=== PATIENT | female | born 1960 | race Caucasian/White ===

== ENCOUNTER 2024-06-29 09:46 | Observation (INO) | payer OTHER, SELFPAY ==
[2024-06-29] VITALS (7 sets, daily range): BP systolic 108–124; BP diastolic 49–72; PULSE 62–98; RESP 16–20; TEMP 36.2–36.9; O2SAT 98–100; BMI 20.8
--- NOTE | ~2024-06-29 | CT_ITS ---
EXAMINATION: CT HEAD WITHOUT CONTRAST CLINICAL INFORMATION: Syncope and head injury COMPARISON: None available. TECHNIQUE: Contiguous axial imaging was performed from the skull base to vertex without intravenous administration of contrast. This CT examination was performed using dose optimization techniques as appropriate, variously including the following: *Automated exposure control *Adjustment of mA and/or kV according to patient size (this includes techniques or standardized protocols for targeted exams where dose is matched to indication/reason for exam; i.e. extremities or head) *Use of iterative reconstruction technique DLP: 560 mGy-cm FINDINGS: There is no acute intra-axial, extra-axial bleed, masses or midline shift. There is no acute infarction in evolution. There is a dense midline falx calcification. There is no edema. The boyle to white matter difference is maintained normal. The lateral ventricles are symmetrical in size and configuration without enlargement. Bone windows reveal no calvarial abnormality. There is no scalp soft tissue abnormality. CT/CT head/brain wo IV con IMPRESSION: No acute intracranial process seen.
--- NOTE | ~2024-06-29 | CT_ITS ---
EXAMINATION: CT ANGIOGRAM HEAD CT ANGIOGRAM NECK CLINICAL INFORMATION: syncope COMPARISON: Same day head CT TECHNIQUE: Test bolus sequences followed by intravenous administration 70 mL of Omnipaque 350. Helical imaging was performed in the axial plane from the aortic arch to the skull vertex. Delayed postcontrast imaging of the head was also performed. The data was processed at the distribution engineering technologist's workstation for generation of MIP sequences. Angled MIPs and volume rendered reformatted images were also generated at an offline 3D workstation. Stenoses are assessed in accordance with Samuels et al. Quantification of Carotid Stenosis on CT Angiography. AJR 2006. 27(1):13-19. This CT examination was performed using dose optimization techniques as appropriate, variously including the following: *Automated exposure control *Adjustment of mA and/or kV according to patient size (this includes techniques or standardized protocols for targeted exams where dose is matched to indication/reason for exam; i.e. extremities or head) *Use of iterative reconstruction technique DLP: 1323 mGy-cm FINDINGS: CT HEAD: 1.5 cm enhancing extra-axial right posterior parafalcine/parasagittal mass causing mild extrinsic compression along the posterior third of the superior sagittal sinus, presumed meningioma. No significant mass effect along the subjacent right parietal lobe. Additional noncontrast intracranial findings discussed separately. CTA HEAD: Extensive venous contamination limits assessment of the distal intracranial arterial vasculature. No hemodynamically significant stenosis or occlusion in the anterior or posterior circulation. Patchy calcific plaque along the carotid siphons without stenosis. No aneurysms and no high flow vascular malformations. Timing of the contrast bolus allows assessment of the major dural venous sinuses, which all opacify normally CTA NECK: Classic 3 vessel branching pattern of the aortic arch. Origins of the great vessels are widely patent. The common carotid arteries are widely patent. The carotid bifurcations and bilateral internal carotid arteries are widely patent. Punctate calcific plaque of the left carotid bulb. The vertebral arteries are codominant The vertebral artery ostia are widely patent. Both vertebral arteries are widely patent throughout their extracranial cervical course. CT NECK: Severe bilateral TMJ osteoarthrosis. Interrupted right posterior maxillary molar. Nonspecific sialectasis of the submandibular glands. Significant dental streak artifact obscures the floor of mouth, however no gross obstructing lesion is identified. Bilateral torus mandibulari calcified bilateral palatine tonsilloliths. Reversal of the normal cervical lordosis and multilevel spondylitic disease.. CT/CT angio head neck IMPRESSION: 1. 1.5 cm right posterior parafalcine/parasagittal meningioma causing mild extrinsic compression along the posterior third of the superior sagittal sinus. No significant mass effect nor vasogenic edema in the the subjacent right parietal lobe. Recommend further characterization with contrast-enhanced MRI. 2. No large vessel occlusion or flow-limiting stenosis within the intracranial or cervical vasculature. No arterial dissection or intracranial saccular aneurysm.
--- NOTE | ~2024-06-29 | XR_ITS ---
EXAMINATION: XR CHEST CLINICAL INFORMATION: Syncope COMPARISON: None available. TECHNIQUE: 2 , Frontal view of the chest was obtained. FINDINGS: The cardiomediastinal silhouette is within normal limits. The lungs are well expanded. There is no focal consolidation, edema, or effusion. No pneumothorax. No acute osseous abnormality. XR/XR chest 1V IMPRESSION: No evidence of acute pulmonary process.
[2024-06-29 10:53] LABS: MANUAL DIFF FLAG NO
[2024-06-29 11:00] LABS: Basophils Percent Auto 0.5 % (0-2); Eosinophils Absolute Auto 0.1 X10*3/uL (0.0-0.4); Hematocrit 36.1 % (37.0-47.0); Hemoglobin 12.4 g/dl (12.0-16.0); Imm Gran Abs Auto 0.01 X10*3/uL (0.00-0.03); Imm Gran Pct Auto 0.1 % (0.0-0.4); Lymphocytes Absolute Auto 1.6 X10*3/uL (1.2-4.9); Lymphocytes Percent Auto 19.2 % (20-40); Mean Corpuscular HGB Conc 34.3 g/dl (31.0-35.0); Mean Corpuscular Hemoglobin 29.9 pg (27.0-33.0); Mean Platelet Volume 9.7 fL (9.4-12.3); Monocytes Absolute Auto 0.6 X10*3/uL (0.1-1.2); Neutrophils Absolute Auto 5.9 x10*3/uL (2.0-8.3); Neutrophils Percent Auto 72.2 % (45-73); Platelet Count 356 X10*3/uL (160-400); Red Blood Count 4.15 X10*6/uL (4.20-5.50); Red Cell Distribution Width 11.7 % (11.0-16.0); White Blood Count 8.2 X10*3/uL (4.8-10.8)
[2024-06-29 11:06] LABS: Anion Gap 16 (12-20); Blood Urea Nitrogen 17 mg/dL (9-16); Calcium 9.5 mg/dL (8.4-10.2); Carbon Dioxide 26 mmol/L (22-29); Chloride 96 mmol/L (96-108); Creatinine Clr Calc Pharmacy 42.2; Estimated Glomerular Filt Rate 46; Glucose Random 111 mg/dL (60-115); Potassium 3.4 mmol/L (3.3-5.1); Sodium 135 mmol/L (135-145)
--- NOTE | 2024-06-29 11:24 | PC.NURSE ---
Pt. states that she has a lump on her head. States that it is from her fall at the grocery store. Per EMS report, it was stated that pt. did not sustain a fall at the grocery store and lowered herself to the ground. Pt. then states that she is actually unsure whether or not she hit her head. Provider notified.
--- NOTE | 2024-06-29 11:29 | PC.NURSE ---
Pt.'s daughter, Laura, wants to leave contact number in chart - [phone]
--- NOTE | 2024-06-29 12:03 | ED_ITS ---
HPI - Syncope General Chief Complaint: Dizziness Stated Complaint: N/V X 3DAYS Time Seen by Provider: 06/29/24 11:35 Source: patient and EMS Mode of arrival: EMS Limitations: no limitations History of Present Illness ED Provider: DR. Kee HPI narrative: 64-year-old female who is otherwise healthy been having nausea and vomiting for the past 3 days that has improved, patient went for shopping today when she felt dizzy and lightheadedness patient passed out for few seconds found herself on the floor and bystander was talking to her, complaining of headache and bump on the left temporal area. otherwise has no other complaints in particular no chest pain, no SOB. Related Data Allergies Allergy/AdvReac Type Severity Reaction Status Date / Time No Known Allergies Allergy Verified 06/29/24 09:58 Review of Systems 2 Review of Systems: All other systems are reviewed and are negative Constitutional: Reports as per HPI and Reports no additional constitutional complaints Eyes: Reports as per HPI and Reports no additional eye complaints Reports system reviewed and no additional complaints, except as documented Cardiovascular: Reports as per HPI and Reports no additional cardiovascular complaints Respiratory: Reports as per HPI and Reports no additional respiratory complaints Gastrointestinal: Reports as per HPI and Reports no additional gastrointestinal complaints Genitourinary: Reports no additional female genitourinary complaints Musculoskeletal: Reports no additional musculoskeletal complaints Skin/Breast: Reports system reviewed and no additional complaints, except as docu Psychiatric: Reports no additional psychiatric complaints Endocrine: Reports no additional endocrine complaints Hematologic/Lymphatic: Reports no additional hematologic/lymphatic complaints Allergic/Immunologic: Reports no additional allergic/immunologic complaints Reports system reviewed and no additional complaints, except as documented and Reports Abnormal speech present [facility] Social History Social History Smoked in Last 30 Days: No Use of substances other than those prescribed or required for medical reasons: Yes Substance Use Type: Marijuana Substance Use Frequency: Weekly Advance Directives: Yes Advance Directives Information Provided: No Advance Directives on File: No Do you have a plan to hurt others: No Plan Physical Exam 2 Vital Signs: Vital Signs: Last Vital Signs Temp 98.4 F 06/29/24 09:56 Pulse 97 06/29/24 12:18 Resp 16 06/29/24 09:56 BP 113/71 06/29/24 12:18 Pulse Ox 100 06/29/24 09:56 O2 Del Method Room Air 06/29/24 09:56 BMI result Body Mass Index 20.8 Vital signs have been reviewed and appear to be correct. Blood pressure elevated. Heart rate normal. Respiratory rate normal. Temperature normal. Oxygen saturation normal. Appearance: Alert. Oriented X3. No acute distress. Head: Normal external exam. Normocephalic. Atraumatic. No Isaac signs noted. No raccoon eyes noted Eyes: PERRLA. EOMI. Conjunctiva and sclera normal. Eyelids normal. ENT: TM's Normal. Pharynx normal. Uvula midline. Moist mucous membranes. No trismus noted. No drooling noted. No muffled voice noted. Neck: Normal inspection. Neck supple. FROM. No adenopathy. Thyroid Normal. No meningeal signs. No neck mass noted. CVS: Normal heart rate and rhythm. Heart sound normal. No murmurs noted. Pulses normal throughout. Respiratory: No respiratory distress. Painless inspiration. Breath sounds normal. No wheezes/rales/rhonchi noted. Chest nontender. No accessory muscle usage noted or decreased air movement noted. Abdomen: Soft and nontender. Bowel sounds normal in all 4 quadrants. No distention noted. No organomegaly noted. No visible injury noted. Back: No CVA tenderness. Full range of motion noted. Skin: Skin warm and dry. Normal skin color. Normal skin turgor. No rashes/lesions/lacerations noted. Extremities: No lower extremity edema. Extremities exhibit normal range of motion. Extremities nontender. Neuro: Oriented X 3. Cranial nerve exam: II-XII are grossly intact No motor deficit. No sensory deficit. Reflexes normal. Course Reevaluation(s) Reevaluation #1: syncopal episode unclear etiology, will admit the patient for cardiac monitoring and further syncopal workup. Time: 14:15 Medications Administered Discontinued Medications Generic Name Dose Route Start Last Admin Trade Name Freq PRN Reason Stop Dose Admin Sodium Chloride 1,000 mls @ 999 mls/hr 06/29/24 12:01 06/29/24 13:37 Ns IV 06/29/24 13:01 Infused .Q1H1M ONE Infusion Medical Decision Making Differential Diagnosis Differential Diagnoses: The differential diagnosis associated with the presentation includes ( ACS, pulmonary embolism, electrolyte derangement, heat stroke, dehydration, severe anemia, intracranial bleed.) Admission/Observation Consideration of admission/observation: Escalation of care including admission/observation considered Consult Healthcare Provider Management of the patient was discussed with: Hospitalist ( Dr. Borjas) Lab Data MDM Lab Attestation statement: I reviewed the patient's lab results. 06/29/24 10:48 06/29/24 10:48 Labs: Lab Results 06/29/24 06/29/24 06/29/24 Range/Units 10:48 12:13 12:50 WBC 8.2 (4.8-10.8) X10*3/uL RBC 4.15 L (4.20-5.50) X10*6/uL Hgb 12.4 (12.0-16.0) g/dl Hct 36.1 L (37.0-47.0) % MCV 87.0 (80.0-98.0) fL MCH 29.9 (27.0-33.0) pg MCHC 34.3 (31.0-35.0) g/dl RDW 11.7 (11.0-16.0) % Plt Count 356 (160-400) X10*3/uL MPV 9.7 (9.4-12.3) fL Immature Gran % (Auto) 0.1 (0.0-0.4) % Neut % (Auto) 72.2 (45-73) % Lymph % (Auto) 19.2 L (20-40) % [place] % (Auto) 7.0 (2-11) % Eos % (Auto) 1.0 (0-4) % Baso % (Auto) 0.5 (0-2) % Lymph # (Auto) 1.6 (1.2-4.9) X10*3/uL [place] # (Auto) 0.6 (0.1-1.2) X10*3/uL Eos # (Auto) 0.1 (0.0-0.4) X10*3/uL Baso # (Auto) 0.0 (0.0-0.2) X10*3/uL Abs Immat Gran (auto) 0.01 (0.00-0.03) X10*3/uL Absolute Neuts (auto) 5.9 (2.0-8.3) x10*3/uL Absolute Nucleated RBC 0.000 (0.0-0.012) X10*3/uL Nucleated RBC % (auto) 0.0 (0.0-0.2) /100WBC D-Dimer High Sensitivty < 150 NG/ML Sodium 135 (135-145) mmol/L Potassium 3.4 (3.3-5.1) mmol/L Chloride 96 (96-108) mmol/L Carbon Dioxide 26 (22-29) mmol/L Anion Gap 16 (12-20) BUN 17 H (9-16) mg/dL Creatinine 1.19 (0.5-1.4) mg/dL Estim Creat Clear Calc 42.2 Estimated GFR 46 Random Glucose 111 (60-115) mg/dL Calcium 9.5 (8.4-10.2) mg/dL Troponin I High Sens 7.0 (<3.5-17.0) ng/L Independent Interpretation I performed an independent interpretation of an: EKG ( Head: No acute intracranial pathology.) and CT Scan ( head: No acute intracranial pathology.) Radiology Impression Discussion of test interpretation with radiology: I have reviewed the radiologist's reading. Discharge Plan Discharge Clinical Impression: Syncope, Syncope and collapse, Closed head injury Patient Disposition: Admitted As Inpatient Print Language: Ug[place]an
[2024-06-29] MEDS: 0.9 % Sodium Chloride 1,000 ML 999 ML IV (12:15)
--- NOTE | 2024-06-29 12:19 | PC.NURSE ---
Orthostatic VS completed per orders.
--- NOTE | 2024-06-29 12:23 | PC.NURSE ---
Swallow screen ordered and completed with a pass.
[2024-06-29 13:04] LABS: D Dimer High Sensitivity < 150 NG/ML
--- NOTE | 2024-06-29 14:20 | ECG_ITS ---
Test Reason : SYNCOPE Blood Pressure : / mmHG Vent. Rate : 060 BPM Atrial Rate : 060 BPM P-R Int : 144 ms QRS Dur : 094 ms QT Int : 416 ms P-R-T Axes : 057 -72 -19 degrees QTc Int : 416 ms Normal sinus rhythm Left axis deviation T wave abnormality, consider anterolateral ischemia Abnormal ECG No previous ECGs available Referred By: Pj Kee Electronically Signed By:IZABEL MAGAÑA MD
[2024-06-29 14:44] LABS: Ethanol < 10 mg/dL
--- NOTE | 2024-06-29 14:51 | PM.IMHP ---
History of Present Illness Date of Service: 06/29/24 Chief Complaint: Syncopal episode 64-year-old female who is very active and healthy by her account presents after syncopal episode and supermarket. Patient states that for the past 3 days she has had nausea and vomiting and very little p.o. intake. She states this morning she took her blood pressure meds and felt like going to the store. While in the supermarket she felt dizzy like she had to lay down and then awoke to people standing over her. She presented to the ER via ambulance. Save contusion to left side of her head otherwise back to baseline at the time of arrival. Review of Systems Review of Systems: Denies chest pain Denies shortness of breath Denies nausea vomiting diarrhea Denies fever chills PMFSH Social History Smoked in Last 30 Days: No Use of substances other than those prescribed or required for medical reasons: Yes Substance Use Type: Marijuana Substance Use Frequency: Weekly Advance Directives: Yes Advance Directives Information Provided: No Advance Directives on File: No Do you have a plan to hurt others: No Plan Meds Allergies Allergy/AdvReac Type Severity Reaction Status Date / Time No Known Allergies Allergy Verified 06/29/24 09:58 Physical Exam Vital Signs and Narrative: Vital Signs: Last Vital Signs Temp 98.4 F 06/29/24 09:56 Pulse 97 06/29/24 12:18 Resp 16 06/29/24 09:56 BP 113/71 06/29/24 12:18 Pulse Ox 100 06/29/24 09:56 O2 Del Method Room Air 06/29/24 09:56 BMI result Body Mass Index 20.8 Const: Other: Awake alert oriented x3 no acute distress HEENT: Other: Left temporal contusion/hematoma proximally 2.5 cm round Resp: Other: Clear to auscultation bilaterally no rales rhonchi or wheezes Cardio: Other: No S4; positive S1-S2; no S3 murmurs rubs or gallops GI: Other: Soft nontender nondistended normoactive bowel sounds Neuro: Other: Cranial nerves 2-12 grossly intact as tested. Motor is 5/5 all extremities. Sensation is intact. Cognition appropriate. Gait steady Extrem: Other: No edema bilaterally Results Labs 06/29/24 10:48 06/29/24 10:48 Labs: Laboratory Results - last 24 hr 06/29/24 06/29/24 06/29/24 10:48 12:13 12:50 MCV 87.0 MCH 29.9 MCHC 34.3 RDW 11.7 Plt Count 356 MPV 9.7 Immature Gran % (Auto) 0.1 Neut % (Auto) 72.2 Lymph % (Auto) 19.2 L [place] % (Auto) 7.0 Eos % (Auto) 1.0 Baso % (Auto) 0.5 Lymph # (Auto) 1.6 [place] # (Auto) 0.6 Eos # (Auto) 0.1 Baso # (Auto) 0.0 Abs Immat Gran (auto) 0.01 Absolute Neuts (auto) 5.9 Absolute Nucleated RBC 0.000 Nucleated RBC % (auto) 0.0 D-Dimer High Sensitivty < 150 Anion Gap 16 Estim Creat Clear Calc 42.2 Estimated GFR 46 Random Glucose 111 Calcium 9.5 Troponin I High Sens 7.0 Ethyl Alcohol < 10 Imaging Radiologist's Impressions: Impressions Head CT 06/29/24 12:42 IMPRESSION: No acute intracranial process seen. Assessment and Plan (1) Closed head injury: Qualifiers: Encounter type: initial encounter Qualified Code(s): S09.90XA - Unspecified injury of head, initial encounter Status: Acute (2) Hypertension: Qualifiers: Hypertension type: primary hypertension Qualified Code(s): I10 - Essential (primary) hypertension Status: Acute (3) Syncope: Qualifiers: Syncope type: unspecified Qualified Code(s): R55 - Syncope and collapse Status: Acute Plan 64-year-old active female presents after syncopal episode and super marked. Three days of poor intake; nausea and vomiting. Martin dizzy and weak and then passed out by her account. Presents to ER asymptomatic 1. Syncope (question vasovagal ) -admit to telemetry overnight -CTA of head negative CTA head and neck pending -volume repletion 2. Hypertension -acceptable control presently -follow clinically -add back therapies when clinically appropriate Full code Lovenox Will require 1 midnight hospital stay to complete workup for syncope Quality Stroke Does the patient have a stroke diagnosis?: No VTE Prior VTE?: No VTE Risk Level:: Medical - moderate - high VTE Device Contraindication: Treatment Not Indicated VTE Drug Contraindication: N/A - Med Ordered
--- NOTE | 2024-06-29 15:25 | PHA.MEDREC ---
Addendum entered by Fredo Villalta [facility] 06/29/24 16:20: MED REC DOUBLED CHECKED BY [facility] Original Note: Pharmacy Consult ? Medication Reconciliation Pharmacy has completed the medication reconciliation. Spoke with patient to confirm medications. Patient says she takes bupropion 1 tab in the morning and then the second one as needed for anxiety/depression, instead of BID as rx says. She took everything this morning.
[2024-06-29] MEDS: Enoxaparin Sodium 40 MG/0.4 ML SYRINGE SUBCUT (15:57)
[2024-06-29] MEDS: 0.9 % Sodium Chloride Flush 3 ML SYRINGE IVFLUSH ×2 (15:58→22:40)
[2024-06-29] MEDS: iohexoL 350 MG/ML 100 ML INFUS..BTL 70 ML IV (16:55)
[2024-06-29] MEDS: Acetaminophen 325 MG TABLET 650 MG PO (22:48)
[2024-06-29] MEDS: Melatonin 3 MG TABLET 6 MG PO (22:48)
[2024-06-30] VITALS: BP 109/63; PULSE 68; RESP 20; TEMP 36.6; O2SAT 99
[2024-06-30 03:00] VITALS: BP 107/70; PULSE 63; RESP 20; TEMP 36.4; O2SAT 100
[2024-06-30 05:06] VITALS: BMI 20.9
[2024-06-30 07:11] LABS: MANUAL DIFF FLAG NO
[2024-06-30 07:22] LABS: Basophils Absolute Auto 0.1 X10*3/uL (0.0-0.2); Basophils Percent Auto 1.1 % (0-2); Eosinophils Absolute Auto 0.2 X10*3/uL (0.0-0.4); Eosinophils Percent Auto 2.8 % (0-4); Hematocrit 35.5 % (37.0-47.0); Hemoglobin 12.1 g/dl (12.0-16.0); Imm Gran Abs Auto 0.01 X10*3/uL (0.00-0.03); Imm Gran Pct Auto 0.2 % (0.0-0.4); Lymphocytes Absolute Auto 2.2 X10*3/uL (1.2-4.9); Lymphocytes Percent Auto 40.5 % (20-40); Mean Corpuscular HGB Conc 34.1 g/dl (31.0-35.0); Mean Corpuscular Hemoglobin 30.4 pg (27.0-33.0); Mean Corpuscular Volume 89.2 fL (80.0-98.0); Mean Platelet Volume 10.2 fL (9.4-12.3); Monocytes Absolute Auto 0.4 X10*3/uL (0.1-1.2); Monocytes Percent Auto 7.8 % (2-11); Neutrophils Absolute Auto 2.6 x10*3/uL (2.0-8.3); Neutrophils Percent Auto 47.6 % (45-73); Platelet Count 339 X10*3/uL (160-400); Red Blood Count 3.98 X10*6/uL (4.20-5.50); Red Cell Distribution Width 11.6 % (11.0-16.0); White Blood Count 5.4 X10*3/uL (4.8-10.8)
[2024-06-30 07:38] LABS: Alanine Aminotransferase 21 U/L (0-31); Albumin Level 4.3 g/dL (3.5-5.0); Alkaline Phosphatase 54 U/L (39-117); Anion Gap 18 (12-20); Aspartate Amino Transferase 21 U/L (5-31); Bilirubin Total 0.5 mg/dL (0.0-1.0); Blood Urea Nitrogen 15 mg/dL (9-16); Calcium 9.9 mg/dL (8.4-10.2); Carbon Dioxide 25 mmol/L (22-29); Chloride 98 mmol/L (96-108); Creatinine Clr Calc Pharmacy 44.2; Estimated Glomerular Filt Rate 48; Glucose Fasting 84 mg/dL (60-99); Potassium 3.6 mmol/L (3.3-5.1); Sodium 137 mmol/L (135-145); Total Protein 6.7 g/dL (6.5-8.0)
[2024-06-30 07:45] VITALS: BP 112/53; PULSE 66; RESP 20; TEMP 36.4; O2SAT 98
[2024-06-30] MEDS: Sertraline HCL 100 MG TABLET PO (08:16)
[2024-06-30] MEDS: buPROPion HCl XL 150 MG TAB.ER.24H PO (08:16)
[2024-06-30] MEDS: hydroCHLOROthiazide 12.5 MG TABLET PO (08:16)
[2024-06-30] MEDS: amLODIPine Besylate 10 MG TABLET PO (08:16)
[2024-06-30] MEDS: Multivitamin TABLET 1 TAB PO (08:16)
[2024-06-30] MEDS: Pravastatin Sodium 40 MG TABLET PO (08:16)
[2024-06-30] MEDS: lisinopriL 10 MG TABLET PO (08:16)
[2024-06-30] MEDS: 0.9 % Sodium Chloride Flush 3 ML SYRINGE IVFLUSH (08:17)
--- NOTE | 2024-06-30 09:29 | MHC.CM.PN ---
Ester 06/30/24, Pt. lives with her dtr., she is independent, no home health services or DME. HCP to be completed here and added to chart. Pt. is able to arrange a ride home at DC. PCP confirmed: Ailyn Redding. DCP: home, self care. CM to follow and assist as needed with DC plan.
[2024-06-30] MEDS: LORazepam 1 MG TABLET PO (10:52)
[2024-06-30 11:29] VITALS: BP 105/58; PULSE 75; RESP 20; TEMP 37.2; O2SAT 99
--- NOTE | 2024-06-30 11:45 | P.CNNE_ITS ---
History of Present Illness Data of Consult Service Date: 06/30/24 Primary Care Provider: TAVARES Schmidt HPI Reason for consult: Dizziness 64 years old woman with previous history of alcohol abuse came to hospital with nausea and dizziness. She said that she could not keep anything in her stomach. There was no mental confusion. There was no focal stroke-like symptoms. She had a CT done that revealed some finding prompting this consultation. Review of Systems 2 Review of Systems: No headache trauma or cold or flu-like symptoms PMFSH Surgical History Surgical History (Updated 06/30/24 @ 05:05 by Domi Milian, RN) History of hip replacement, total Social History Social History (Updated 06/30/24 @ 01:08 by Domi Milian RN) Household Members: Children Housing: House Do you presently have visiting nurse or other home services: No Patient Tobacco Use Status: Never used Tobacco e-Cigarette/Vaping Use: Never Used Substance Use Type: Marijuana service: No Meds Allergies Allergy/AdvReac Type Severity Reaction Status Date / Time No Known Allergies Allergy Verified 06/29/24 09:58 Active Medications: Current Medications Acetaminophen (Acetaminophen 325 Mg Tablet) 650 mg PO Q6H PRN PRN Reason: Pain, Mild (Pain Scale 1-3), fever or headache Last Admin: 06/29/24 22:48 Dose: 650 mg Amlodipine Besylate (Amlodipine Besylate 10 Mg Tablet) 10 mg PO DAILY [facility]; Protocol Last Admin: 06/30/24 08:16 Dose: 10 mg Bupropion HCl (Bupropion Hcl Xl 150 Mg Tab.Er.24h) 150 mg PO DAILY [facility] Last Admin: 06/30/24 08:16 Dose: 150 mg Calcium Carbonate (Calcium Carbonate 750 Mg Tab.Chew) 750 mg PO Q4H PRN PRN Reason: Heartburn Enoxaparin Sodium (Enoxaparin Sodium 40 Mg/0.4 Ml Syringe) 40 mg SUBCUT Q24H [facility] Last Admin: 06/29/24 15:57 Dose: 40 mg Hydrochlorothiazide (Hydrochlorothiazide 12.5 Mg Tablet) 12.5 mg PO DAILY [facility] Last Admin: 06/30/24 08:16 Dose: 12.5 mg Lisinopril (Lisinopril 10 Mg Tablet) 10 mg PO DAILY [facility] Last Admin: 06/30/24 08:16 Dose: 10 mg Magnesium Hydroxide (Milk Of Magnesia 30 Ml Oral.Susp) 30 ml PO DAILY PRN PRN Reason: Constipation Melatonin (Melatonin 3 Mg Tablet) 6 mg PO BEDTIME PRN PRN Reason: Insomnia Last Admin: 06/29/24 22:48 Dose: 6 mg Multivitamins/Vitamin C (Multivitamin Tablet) 1 tab PO DAILY [facility] Last Admin: 06/30/24 08:16 Dose: 1 tab Ondansetron HCl (Ondansetron Hcl 4 Mg/2 Ml Vial) 4 mg IVPUSH Q8H PRN PRN Reason: Nausea and Vomiting Pravastatin Sodium (Pravastatin Sodium 40 Mg Tablet) 40 mg PO DAILY [facility] Last Admin: 06/30/24 08:16 Dose: 40 mg Sertraline HCl (Sertraline Hcl 100 Mg Tablet) 100 mg PO DAILY [facility] Last Admin: 06/30/24 08:16 Dose: 100 mg Sodium Chloride (0.9 % Sodium Chloride Flush 3 Ml Syringe) 3 ml IVFLUSH QSHIFT [facility] Last Admin: 06/30/24 08:17 Dose: 3 ml Home Medications ?Medication ?Instructions ?Recorded ?Confirmed ?Last Taken ?Type amlodipine 10 mg tablet 10 mg PO DAILY 06/29/24 06/29/24 06/29/24 History bupropion HCl 150 mg tablet,12 hr 150 mg PO DAILY 06/29/24 06/29/24 06/29/24 History sustained-release bupropion HCl 150 mg tablet,12 hr 150 mg PO DAILY PRN 06/29/24 06/29/24 Unknown History sustained-release anxiety/depression lisinopril 10 1 tab PO DAILY 06/29/24 06/29/24 06/29/24 History mg-hydrochlorothiazide 12.5 mg tablet multivitamin 1 tab PO DAILY 06/29/24 06/29/24 06/29/24 History pravastatin 40 mg tablet 40 mg PO DAILY 06/29/24 06/29/24 06/29/24 History sertraline 100 mg tablet 100 mg PO DAILY 06/29/24 06/29/24 06/29/24 History Physical Exam 2 Vital Signs: Vital Signs: Last Vital Signs Temp 98.9 F 06/30/24 11:29 Pulse 75 06/30/24 11:29 Resp 20 06/30/24 11:29 BP 105/58 L 06/30/24 11:29 Pulse Ox 99 06/30/24 11:29 O2 Del Method Room Air 06/30/24 11:29 BMI result Body Mass Index 20.9 Neuro: Other: She is alert and awake with normal spontaneity of speech fluency comprehension and affect. Face is symmetrical. Visual [place] are full. There is mild [id number] ataxia. Deep tendon reflexes are absent with flexor plantars. Speech is normal. Results Labs 06/30/24 06:20 06/30/24 06:20 Labs: Short CBC 06/30/24 Range/Units 06:20 WBC 5.4 (4.8-10.8) X10*3/uL Hgb 12.1 (12.0-16.0) g/dl Hct 35.5 L (37.0-47.0) % Plt Count 339 (160-400) X10*3/uL BMP 06/30/24 06:20 Sodium 137 Potassium 3.6 Chloride 98 Carbon Dioxide 25 BUN 15 Creatinine 1.14 Calcium 9.9 Liver Function 06/30/24 Range/Units 06:20 Total Bilirubin 0.5 (0.0-1.0) mg/dL AST 21 (5-31) U/L ALT 21 (0-31) U/L Alkaline Phosphatase 54 (39-117) U/L Albumin 4.3 (3.5-5.0) g/dL CTA and CTA of brain were reviewed. There were few calcified para fell sign lesions not resulting in any significant effect on the brain. Assessment and Plan (1) Meningioma: Status: Acute 64 years old woman who probably had a stomach syndrome resulting in dizziness and nausea. As far as brain exam findings are concerned, there few tiny calcified lesions attached to falx, probably chronic meningioma not resulting in any pathology. No further intervention is needed at this time. Procedures Date of Service Date of Service: 06/30/24
--- NOTE | 2024-06-30 11:48 | P.DS_ITS ---
DS: Providers Provider Date of Service: 06/30/24 Date of admission: 06/29/24 14:59 Date of discharge: 06/30/24 Primary care physician: TAVARES Schmidt Consults: 06/30/24 07:28 Consult to Neurology Routine Consulting Provider: [facility] Reason for consultation: meningioma Has provider been notified: No DS: Diagnosis Discharge Diagnosis (1) Closed head injury: Status: Acute (2) Hypertension: Status: Acute (3) Syncope: Status: Acute DS: Summary Hospital Course Hospital Course: 64-year-old female who is very active and healthy by her account presents after syncopal episode and supermarket. Patient states that for the past 3 days she has had nausea and vomiting and very little p.o. intake. She states this morning she took her blood pressure meds and felt like going to the store. While in the supermarket she felt dizzy like she had to lay down and then awoke to people standing over her. She presented to the ER via ambulance. Save contusion to left side of her head otherwise back to baseline at the time of arrival. Hospital Course Patient admitted to telemetry where monitor failed to demonstrate a rhythm that could be associated with her presenting complaint. Workup including CTA of head and neck failed to demonstrate any vascular abnormalities however did demonstrate a meningioma. Neurology was consulted who stated that no further workup is needed for this benign condition. She received 2 L of fluid overnight and is feeling markedly improved since admission. At this point she is medically acceptable for discharge with follow up with the PCP Time Attestation Discharge Coordination Time (in mins): 35 Quality: Safe Use of Opioids Does Pt have an Active Cancer Diagnosis on the Problem List?: No Quality: Stroke Does the patient have a stroke diagnosis?: No Physical Exam Vital Signs: Vital Signs: Last Vital Signs Temp 98.9 F 06/30/24 11:29 Pulse 75 06/30/24 11:29 Resp 20 06/30/24 11:29 BP 105/58 L 06/30/24 11:29 Pulse Ox 99 06/30/24 11:29 O2 Del Method Room Air 06/30/24 11:29 BMI result Body Mass Index 20.9 Const: Other: Awake alert oriented x3 no acute distress HEENT: Other: Left temporal contusion/hematoma proximally 2.5 cm round Resp: Other: Clear to auscultation bilaterally no rales rhonchi or wheezes Cardio: Other: No S4; positive S1-S2; no S3 murmurs rubs or gallops GI: Other: Soft nontender nondistended normoactive bowel sounds Neuro: Other: Cranial nerves 2-12 grossly intact as tested. Motor is 5/5 all extremities. Sensation is intact. Cognition appropriate. Gait steady Extrem: Other: No edema bilaterally DS: Data Data Completed and Pending Labs on day of discharge: Laboratory Results - last 24 hr 06/29/24 06/29/24 06/29/24 10:48 12:13 12:50 WBC RBC Hgb Hct MCV MCH MCHC RDW Plt Count MPV Immature Gran % (Auto) Neut % (Auto) Lymph % (Auto) [place] % (Auto) Eos % (Auto) Baso % (Auto) Lymph # (Auto) [place] # (Auto) Eos # (Auto) Baso # (Auto) Abs Immat Gran (auto) Absolute Neuts (auto) Absolute Nucleated RBC Nucleated RBC % (auto) D-Dimer High Sensitivty < 150 Sodium Potassium Chloride Carbon Dioxide Anion Gap BUN Creatinine Estim Creat Clear Calc Estimated GFR Fasting Glucose Calcium Total Bilirubin AST ALT Alkaline Phosphatase Troponin I High Sens 7.0 Total Protein Albumin Ethyl Alcohol < 10 06/30/24 06:20 WBC 5.4 RBC 3.98 L Hgb 12.1 Hct 35.5 L MCV 89.2 MCH 30.4 MCHC 34.1 RDW 11.6 Plt Count 339 MPV 10.2 Immature Gran % (Auto) 0.2 Neut % (Auto) 47.6 Lymph % (Auto) 40.5 H [place] % (Auto) 7.8 Eos % (Auto) 2.8 Baso % (Auto) 1.1 Lymph # (Auto) 2.2 [place] # (Auto) 0.4 Eos # (Auto) 0.2 Baso # (Auto) 0.1 Abs Immat Gran (auto) 0.01 Absolute Neuts (auto) 2.6 Absolute Nucleated RBC 0.000 Nucleated RBC % (auto) 0.0 D-Dimer High Sensitivty Sodium 137 Potassium 3.6 Chloride 98 Carbon Dioxide 25 Anion Gap 18 BUN 15 Creatinine 1.14 Estim Creat Clear Calc 44.2 Estimated GFR 48 Fasting Glucose 84 Calcium 9.9 Total Bilirubin 0.5 AST 21 ALT 21 Alkaline Phosphatase 54 Troponin I High Sens Total Protein 6.7 Albumin 4.3 Ethyl Alcohol Discharge Plan Discharge Anticipated Discharge Date/Time: 06/30/24 11:44 Patient Disposition: Home, Self-Care Discharge Diagnosis: Syncope Referrals: Ailyn Blake PA [Primary Care Provider] - 1 Week Discharge Medications: Continued multivitamin Tablet 1 tab PO DAILY bupropion HCl 150 mg tablet sustained-release 12 hr 150 mg PO DAILY PRN (Reason: anxiety/depression) bupropion HCl 150 mg tablet sustained-release 12 hr 150 mg PO DAILY pravastatin 40 mg tablet 40 mg PO DAILY sertraline 100 mg tablet 100 mg PO DAILY amlodipine 10 mg tablet 10 mg PO DAILY lisinopril-hydrochlorothiazide 10-12.5 mg tablet 1 tab PO DAILY Discharge Orders: Discharge Order (Routine); Ordered 06/30/24 Ordered By: Chiki Borjas Diet: Advance to usual diet Activity on Discharge: As tolerated Stand Alone Forms: Patient Portal Discharge page Print Language: Czech Care Plan Goals: Resume all medicines as taken prior to hospital Health Concerns: Follow-up with your PCP next available; no further workup or follow-up is needed for your meningioma. Plan of Treatment: Continue all your pre-hospital routines Assessment: See discharge summary
== END 2024-06-30 13:22 | disposition home or self-care (01) ==
LOC: HO.ED 14:15 → HO.EDOVER 15:09 → HO.IMC 19:37
PROVIDERS: Admitting Provider Hospitalist; Emergency Provider Emergency Medicine; PCP Physician Assistant; Visit Provider Hospitalist
DX: S09.90XA Unspecified injury of head, initial encounter (principal); W18.30XA Fall on same level, unspecified, initial encounter; Y93.89 Activity, other specified; Y92.512 Supermarket, store or market as the place of occurrence of the external cause; Y99.9 Unspecified external cause status; R55 Syncope and collapse; I10 Essential (primary) hypertension; D32.9 Benign neoplasm of meninges, unspecified; R42 Dizziness and giddiness; R51.9 Headache, unspecified; R11.2 Nausea with vomiting, unspecified; D32.0 Benign neoplasm of cerebral meninges
CPT/HCPCS: 36415; 70450; 70496; 70498; 71045; 80048; 80053; 80307; 84484; 85025; 85379; 93005; 96360; 96361; 96372; 99222; 99285; J1650; Q9967

== ENCOUNTER → 2024-06-29 10:22 | Outpatient (BNV) | payer OTHER, SELFPAY | PROVIDERS: Emergency Provider Emergency Medicine; PCP Physician Assistant; Visit Provider Hospitalist | DX: S09.90XA Unspecified injury of head, initial encounter (principal); I10 Essential (primary) hypertension; R55 Syncope and collapse | CPT/HCPCS: 99223; 99239 ==

== ENCOUNTER → 2024-06-29 14:20 | Outpatient (BNV) | payer OTHER, SELFPAY | PROVIDERS: Admitting Provider Hospitalist; Emergency Provider Emergency Medicine; PCP Physician Assistant; Visit Provider Internal Medicine Cardiovascular Disease | DX: R94.31 Abnormal electrocardiogram [ECG] [EKG] (principal) | CPT/HCPCS: 93010 ==

== ENCOUNTER → 2024-06-29 14:59 | Outpatient (BNV) | payer OTHER, SELFPAY | PROVIDERS: Admitting Provider Hospitalist; Emergency Provider Emergency Medicine; PCP Physician Assistant; Visit Provider Psychiatry & Neurology Neurology | DX: D32.9 Benign neoplasm of meninges, unspecified (principal) | CPT/HCPCS: 99222 ==